=== PATIENT | female | born 1970 | race Caucasian/White ===

== ENCOUNTER 2017-09-08 12:08 | Outpatient (RCR) | payer BC, SELFPAY | END 2017-09-20 23:59 | LOC: NS 12:08 | PROVIDERS: Family Provider Internal Medicine; PCP Internal Medicine; Visit Provider Internal Medicine | DX: E66.9 Obesity, unspecified (principal); Z68.33 Body mass index [BMI] 33.0-33.9, adult; R73.09 Other abnormal glucose; Z71.3 Dietary counseling and surveillance | CPT/HCPCS: 97803 ==

== ENCOUNTER 2017-10-13 12:30 | Outpatient (RCR) | payer BC, SELFPAY ==
[2017-06-09 21:20] VITALS: BMI 34.4
[2017-06-09 23:33] VITALS: BP 130/57
== END 2017-10-18 23:59 ==
LOC: NS 12:30
PROVIDERS: Family Provider Internal Medicine; PCP Internal Medicine; Visit Provider Internal Medicine
DX: E66.9 Obesity, unspecified (principal); R73.09 Other abnormal glucose; Z68.33 Body mass index [BMI] 33.0-33.9, adult; Z71.3 Dietary counseling and surveillance
CPT/HCPCS: 97803

== ENCOUNTER 2017-11-10 11:36 | Outpatient (RCR) | payer BC, SELFPAY | END 2017-11-18 23:59 | LOC: NS 11:36 | PROVIDERS: Family Provider Internal Medicine; PCP Internal Medicine; Visit Provider Internal Medicine | DX: E66.9 Obesity, unspecified (principal); Z68.33 Body mass index [BMI] 33.0-33.9, adult | CPT/HCPCS: 97803 ==

== ENCOUNTER 2017-12-15 13:00 | Outpatient (RCR) | payer BC, SELFPAY | END 2017-12-18 23:59 | LOC: NS 13:00 | PROVIDERS: Family Provider Internal Medicine; PCP Internal Medicine; Visit Provider Internal Medicine | DX: E66.9 Obesity, unspecified (principal); Z68.33 Body mass index [BMI] 33.0-33.9, adult; R73.09 Other abnormal glucose; Z71.3 Dietary counseling and surveillance | CPT/HCPCS: 97803 ==

== ENCOUNTER → 2018-02-23 11:58 | Outpatient (CLI) | payer BC, SELFPAY ==
[2018-02-23 12:29] LABS: Absolute Lymphocyte Count 3.04 X10^3/ul (0.83-4.51); Absolute Neutrophil Count 6.7 X10^3/uL (2.0-7.7); Basophil# 0.01 X10^3/uL; Basophil% 0.1 % (0-1); Eosinophil# 0.02 X10^3/uL; Eosinophils% 0.2 % (0-5); Hematocrit 43.6 % (37-47); Hemoglobin 14.3 g/dl (12.0-15.0); Lymphocyte # 3.04 X10^3/ul (4.0); Lymphocyte % 27.4 % (19-41); Mean Corp Hgb Conc 32.8 g/gl (32-36); Mean Corpuscular Hgb 28.9 pg (27.0-32.0); Mean Corpuscular Volume 88.1 fL (81-99); Monocyte# 1.31 X10^3/uL; Monocyte% 11.8 % (0-10); Neutrophil # 6.71 X10^3/uL (2.7-7.7); Neutrophil % 60.3 % (47-70); Platelet Count 344 K/mm3 (150-450); RBC Distribution Width CV 13.7 % (11.6-14.6); RBC Distribution Width SD 43.7 fl (35.1-43.9); Red Blood Count 4.95 M/mm3 (4.2-5.4); White Blood Count 11.1 K/mm3 (4.4-11.0)
[2018-02-23 12:30] LABS: POSITIVE COUNT NO; POSITIVE DIFFERENTIAL NO; POSITIVE MORPHOLOGY NO
[2018-02-23 12:56] LABS: Hemoglobin A1c 6.5 % (4.2-6.3)
[2018-02-23 13:16] LABS: Anion Gap 8 (5-15); BUN 18 mg/dL (7-18); Calcium,Total 8.9 mg/dL (8.5-10.1); Chloride 105 mmol/L (98-107); Cholesterol 155 mg/dL (200); Creatinine, Serum 0.86 mg/dL (0.55-1.02); EST Glomerular Filtration Rate 75 mL/min (>60); Est Glom Filt Rate - Afr Amer 90 mL/min (>60); Glucose 103 mg/dL (74-106); High Density Lipoprotein 43 mg/dL; Potassium 4.4 mmol/L (3.5-5.1); Sodium Level 140 mmol/L (136-145); Triglycerides 144 mg/dL; Very Low Density Lipoprotein 29 mg/dL (5-40)
[2018-02-23 14:35] LABS: ALB/GLOB Ratio 1.1 RATIO (0.9-2.4); AST(SGOT) 11 U/L (15-37); Alanine Aminotransfer ALT/SGPT 30 U/L (13-56); Albumin, Serum 3.7 g/dL (3.2-5.0); Alkaline Phosphatase 66 U/L (45-117); Globulin 3.5 g/dL (2.2-4.2); Protein, Total 7.2 g/dL (6.4-8.2)
== END ==
PROVIDERS: Family Provider Internal Medicine; PCP Internal Medicine; Visit Provider Internal Medicine
DX: Z00.00 Encounter for general adult medical examination without abnormal findings (principal); E66.9 Obesity, unspecified
CPT/HCPCS: 36415; 80053; 80061; 83036; 85025

== ENCOUNTER 2018-03-09 11:30 | Outpatient (RCR) | payer BC, SELFPAY | END 2018-03-20 23:59 | LOC: NS 11:30 | PROVIDERS: Family Provider Internal Medicine; PCP Internal Medicine; Visit Provider Internal Medicine | DX: E66.9 Obesity, unspecified (principal); Z68.33 Body mass index [BMI] 33.0-33.9, adult; R73.09 Other abnormal glucose; Z71.3 Dietary counseling and surveillance | CPT/HCPCS: 97803 ==

== ENCOUNTER 2018-03-14 14:32 | Emergency (ER) | payer BC, SELFPAY ==
[2018-03-14 14:32] VITALS: BP 156/80; PULSE 97; RESP 20; TEMP 36.6; O2SAT 95; BMI 31.1
--- NOTE | 2018-03-14 14:43 | EKG12_ITS ---
Test Reason : Blood Pressure : / mmHG Vent. Rate : 088 BPM Atrial Rate : 088 BPM P-R Int : 150 ms QRS Dur : 090 ms QT Int : 374 ms P-R-T Axes : 052 021 046 degrees QTc Int : 452 ms Normal sinus rhythm Normal ECG Confirmed by KATIE OCHOA, SUZETTE ([id number]), brands editor ANDREW WHALEN ([id number]) on 03/16/2018 1:37:30 PM Referred By: Dustin Dempsey Confirmed By:SUZETTE WILSON MD
--- NOTE | 2018-03-14 15:25 | RAD_ITS ---
STUDY: X-RAY CHEST REASON FOR EXAM: Female, 47 years old. Chest pain TECHNIQUE: Single AP portable view of the chest. COMPARISON: 06/09/2017 FINDINGS: The lungs are clear and expanded. There is no demonstrated pleural abnormality. Normal size heart. Normal mediastinum and suresh. Normal visualized pulmonary arteries. Normal visualized aortic arch and descending thoracic aorta. Normal visualized thoracic spine. Normal visualized ribs, clavicles, and shoulders. There is no demonstrated abnormality of the visualized soft tissue structures of the upper abdomen. RAD/Chest 1 View (Portable) IMPRESSION: Normal x-ray examination of the chest. Electronically Signed: Shiraz Garrett MD at 15:41 EDT , Service support ,
[2018-03-14 15:29] LABS: Absolute Lymphocyte Count 1.93 X10^3/ul (0.83-4.51); Absolute Neutrophil Count 3.3 X10^3/uL (2.0-7.7); Basophil# 0.03 X10^3/uL; Basophil% 0.5 % (0-1); Eosinophil# 0.03 X10^3/uL; Eosinophils% 0.5 % (0-5); Hematocrit 43.3 % (37-47); Hemoglobin 14.6 g/dl (12.0-15.0); Lymphocyte # 1.93 X10^3/ul (4.0); Mean Corp Hgb Conc 33.7 g/gl (32-36); Mean Corpuscular Hgb 29.4 pg (27.0-32.0); Mean Corpuscular Volume 87.3 fL (81-99); Mean Platelet Vol. 10.3 fl (6.2-12.0); Monocyte# 0.74 X10^3/uL; Monocyte% 12.3 % (0-10); Neutrophil # 3.29 X10^3/uL (2.7-7.7); Neutrophil % 54.4 % (47-70); Platelet Count 298 K/mm3 (150-450); RBC Distribution Width CV 13.6 % (11.6-14.6); RBC Distribution Width SD 42.8 fl (35.1-43.9); Red Blood Count 4.96 M/mm3 (4.2-5.4)
[2018-03-14 15:41] LABS: POSITIVE COUNT NO; POSITIVE DIFFERENTIAL NO; POSITIVE MORPHOLOGY NO
[2018-03-14 15:42] LABS: Anion Gap 7 (5-15); BUN 14 mg/dL (7-18); BUN/Creat Ratio 15.9 RATIO (10-20); Calcium,Total 9.1 mg/dL (8.5-10.1); Chloride 108 mmol/L (98-107); Creatinine, Serum 0.88 mg/dL (0.55-1.02); EST Glomerular Filtration Rate 72 mL/min (>60); Est Glom Filt Rate - Afr Amer 88 mL/min (>60); Estimated Creatinine Clearance 69.59 ml/min; Glucose 159 mg/dL (74-106); Potassium 3.7 mmol/L (3.5-5.1); Sodium Level 142 mmol/L (136-145)
[2018-03-14 15:45] VITALS: BP 121/73; PULSE 77; RESP 12; O2SAT 98
[2018-03-14 16:12] LABS: Prothrombin Time (Protime)PT. 13.5 SECONDS (11.7-14.9)
--- NOTE | 2018-03-14 16:39 | CT_ITS ---
STUDY: CT BRAIN WITHOUT CONTRAST REASON FOR EXAM: Female, 47 years old. Weakness. Left-sided numbness. RADIATION DOSAGE (If Supplied By Facility): CTDIvol = ( 60.81 ) mGy, DLP = ( 1112.69 ) mGycm TECHNIQUE: Transaxial CT imaging of the brain was performed without administration of intravenous contrast material. Individualized dose optimization techniques were used for this CT. COMPARISON: March 21, 2017 FINDINGS: Normal soft tissue structures. Normal calvarium. Normal size ventricles and extra-axial spaces for the patient's age. Normal white matter tracts of the cerebral hemispheres. Normal basal ganglia and thalami. Normal brainstem. Normal cerebellum. There is no intracranial hemorrhage. There are no findings of an acute ischemic infarction. Normal visualized paranasal sinuses. CT/Brain/Head without Contrast IMPRESSION: Normal unenhanced CT scan of the brain. Electronically Signed: Stephen Feliz MD at 17:14 EDT , Service support ,
--- NOTE | 2018-03-14 17:41 | ED.VISSUMM ---
- ER Visit Summary Date of Service: 03/14/18 Chief Complaint: Chest pain History of Present Illness: The patient is a 47 F who has had chest pain for 4 days. She states that sharp in the left side of her chest. It is worse with exertion and nothing makes it better. She has shortness of breath and laying down on her left side. She states that she also felt numbness on her left side as well. She has had a cough with phlegm for approximately 1 year. She is also fixated about her hemoglobin A1c being elevated by her PCP a couple of days ago. She denies any slurred speech, weakness of her arms or legs. No facial droop. Physical Examination: Vital signs reviewed. HEENT exam unremarkable. Heart is regular rate and rhythm without murmurs. Lungs are clear to auscultation. Abdomen is soft and nontender. Extremities reveal no edema. Skin exam normal. Neurologic exam normal. NIH equals 0 Test Results: EKG is sinus rhythm with a rate of 85. No ST changes. Chest x-ray and CAT scan the head are both normal. Labs are normal except for chloride of 108. Emergency Department Course and Treatment: Patient has a JILLIAN score of 0. I do not feel that her chest pain needs to be worked up as an inpatient. It is likely musculoskeletal. Her paresthesias are now gone. I had a very low suspicion for TIA. No signs of a stroke. She will need to follow-up with her primary care physician for this. I will give her naproxen to help with her pain control. Treatment Plan: [] Disposition: Discharge Impression: Chest pain, left arm paresthesias This note was generated with [employer] dictation software. It may contain incorrect words, spelling, and punctuation that were not noted in review of the chart prior to signing ED Disposition - Plan for ED Patient: Chief Complaint: Chest Pain Referrals: Oli Velasco MD [Primary Care Provider] -
--- NOTE | 2018-03-14 17:43 | ED.DEP ---
ED Disposition - Plan for ED Patient: Disposition: Home or Assisted Living Chief Complaint: Chest Pain Instructions: ED Chest Pain NonCardiac Prescriptions: Naproxen [Naprosyn] 500 mg PO BID PRN #20 tab Referrals: Oli Velasco MD [Primary Care Provider] -
[2018-03-14 17:52] VITALS: BP 140/79; PULSE 68; RESP 12; O2SAT 100
--- NOTE | 2018-03-14 17:53 | ED.RN ---
REVIEWED D/C INSTRUCTIONS, FOLLOW UP CARE, PRESCRIPTION, AND S/S THAT WOULD WARRANT A RETURN TO THE ED WITH PT. PT VERBALIZED AN UNDERSTANDING AND DENIES FURTHER QUESTIONS FOR THIS RN. PT SKIN P/W/D, RESP EVEN AND UNLABORED, PT A&O X 3, NO DISTRESS NOTED. PT AMBULATED OUT OF ED, GAIT STEADY.
== END 2018-03-14 17:54 | disposition home or self-care (01) ==
PROVIDERS: Emergency Provider Emergency Medicine; Family Provider Internal Medicine; PCP Internal Medicine
DX: R07.9 Chest pain, unspecified (principal); R20.2 Paresthesia of skin; R06.00 Dyspnea, unspecified; Z79.899 Other long term (current) drug therapy
CPT/HCPCS: 70450; 71045; 80048; 84484; 85025; 85610; 93005; 99284

== ENCOUNTER 2018-04-20 08:15 | Outpatient (RCR) | payer BC, SELFPAY | END 2018-04-20 23:59 | LOC: NS 08:15 | PROVIDERS: Family Provider Internal Medicine; PCP Internal Medicine; Visit Provider Internal Medicine | DX: E66.9 Obesity, unspecified (principal); Z68.33 Body mass index [BMI] 33.0-33.9, adult; R73.09 Other abnormal glucose; Z71.3 Dietary counseling and surveillance | CPT/HCPCS: 97803 ==

== ENCOUNTER 2018-05-04 08:35 | Outpatient (RCR) | payer BC, SELFPAY | END 2018-05-20 23:59 | LOC: NS 08:35 | PROVIDERS: Family Provider Internal Medicine; PCP Internal Medicine; Visit Provider Internal Medicine | DX: E11.9 Type 2 diabetes mellitus without complications (principal); E66.9 Obesity, unspecified; Z71.3 Dietary counseling and surveillance | CPT/HCPCS: 97802 ==

== ENCOUNTER 2018-06-08 12:15 | Outpatient (RCR) | payer BC, SELFPAY | END 2018-06-20 23:59 | LOC: NS 12:15 | PROVIDERS: Family Provider Internal Medicine; PCP Internal Medicine; Referring Provider Internal Medicine; Visit Provider Internal Medicine | DX: E11.9 Type 2 diabetes mellitus without complications (principal); E66.9 Obesity, unspecified; Z71.3 Dietary counseling and surveillance | CPT/HCPCS: 97803 ==

== ENCOUNTER 2018-06-22 11:15 | Outpatient (RCR) | payer BC, SELFPAY | END 2018-07-20 23:59 | LOC: NS 11:15 | PROVIDERS: Family Provider Internal Medicine; PCP Internal Medicine; Referring Provider Internal Medicine; Visit Provider Internal Medicine | DX: E11.9 Type 2 diabetes mellitus without complications (principal); E66.9 Obesity, unspecified; Z71.3 Dietary counseling and surveillance | CPT/HCPCS: 97803 ==

== ENCOUNTER → 2018-06-29 14:36 | Outpatient (CLI) | payer BC, SELFPAY ==
[2018-07-05 08:21] LABS: HPV Reflexed? NOT INDICATED
== END ==
PROVIDERS: Visit Provider Obstetrics & Gynecology
DX: Z12.4 Encounter for screening for malignant neoplasm of cervix (principal)
CPT/HCPCS: 87624; 88175; G0145

== ENCOUNTER → 2018-07-11 16:07 | Outpatient (CLI) | payer BC, SELFPAY ==
[2018-07-11 13:07] VITALS: BMI 31.6
[2018-07-11 17:10] LABS: Bacteria 0 SEEN /hpf (None Seen); Mucous, Urine 0 SEEN /hpf (<or=2+); Red Blood Cells-Urine 0 SEEN /hpf (0-5); White Blood Cells 0 SEEN /hpf (0-5)
[2018-07-11 17:17] LABS: Color, Urine Yellow (Yellow); Glucose, Dipstick Normal (Normal); Ketone-Dipstick Negative (Negative); Leukocyte Esterase-Dipstick Negative /ul (Negative); Nitrite-Dipstick Negative (Negative); Occult Blood-Urine 10 /ul (Negative); Protein-Dipstick Negative (Negative); Specific Gravity, Urine 1.015 (1.002-1.030); Urine Bilirubin Dipstick Negative (Negative); Urine Clarity Clear (Clear); Urine Urobilinogen Normal (Normal)
[2018-07-11 17:24] LABS: Squamous Epithelial Cells - UA 0-5 SEEN /hpf (5-10)
== END ==
PROVIDERS: Referring Provider Internal Medicine; Visit Provider Internal Medicine
DX: R10.9 Unspecified abdominal pain (principal)
CPT/HCPCS: 81001

== ENCOUNTER → 2018-08-13 13:01 | Outpatient (CLI) | payer BC, SELFPAY ==
[2018-07-11 13:07] VITALS: BMI 31.6
--- NOTE | 2018-08-13 13:04 | BI_ITS ---
MAMMOGRAPHY - BILATERAL SCREENING 3-D SUSANNAH SYNTHESIS REASON FOR EXAM: Female, 48 years old. Bilateral Screening 3-D tomosynthesis PERTINENT HISTORY: No significant family history. TECHNIQUE: 2-D mammograms and 3-D Susannah synthesis of the breast (s) were performed. CAD was performed. COMPARISON: Was made to the study of June 02, 2017 FINDINGS: The breast composition is of scattered fibroglandular tissue No dense spiculated masses or suspicious microcalcifications are identified. No architectural distortion is identified. There is no skin thickening or retraction. There has been no significant change since the prior study of June 02, 2017. BI/SCREENING MAMM (CAD), BILAT IMPRESSION: No mammographic signs of malignancy. Routine yearly mammograms recommended. ASSESSMENT CATEGORY: BIRADS Category 1: Negative. A letter regarding these results will be sent to the patient by the facility within 30 days. FOLLOW UP RECOMMENDATION: Yearly follow up mammogram recommended. (A) Approximately 10% of breast cancers are not detected by mammography. A normal mammogram should not delay biopsy of a clinically suspicious abnormality. Electronically Signed: Jack Oneill, at 11:18 EST Tel , Service support ,
== END ==
PROVIDERS: Family Provider Internal Medicine; PCP Internal Medicine; Referring Provider Obstetrics & Gynecology; Visit Provider Obstetrics & Gynecology
DX: Z12.31 Encounter for screening mammogram for malignant neoplasm of breast (principal)
CPT/HCPCS: 77063; 77067

== ENCOUNTER 2018-09-07 10:30 | Outpatient (RCR) | payer BC, SELFPAY ==
[2018-07-11 13:07] VITALS: BMI 31.6
== END 2018-09-20 23:59 ==
LOC: NS 10:30
PROVIDERS: Family Provider Internal Medicine; PCP Internal Medicine; Referring Provider Internal Medicine; Visit Provider Internal Medicine
DX: E11.9 Type 2 diabetes mellitus without complications (principal); E66.9 Obesity, unspecified; Z71.3 Dietary counseling and surveillance
CPT/HCPCS: 97803

== ENCOUNTER 2018-09-28 10:29 | Outpatient (RCR) | payer BC, SELFPAY ==
[2018-07-11 13:07] VITALS: BMI 31.6
== END 2018-09-28 23:59 | disposition home or self-care (01) ==
LOC: NS 10:29
PROVIDERS: Family Provider Internal Medicine; PCP Internal Medicine; Referring Provider Internal Medicine; Visit Provider Internal Medicine
DX: E11.9 Type 2 diabetes mellitus without complications (principal); E66.9 Obesity, unspecified; Z71.3 Dietary counseling and surveillance
CPT/HCPCS: 97803

== ENCOUNTER → 2018-10-17 07:27 | Outpatient (CLI) | payer BC, SELFPAY ==
[2018-07-11 13:07] VITALS: BMI 31.6
[2018-10-17 08:33] LABS: Hemoglobin A1c 6.2 % (4.2-6.3)
== END ==
PROVIDERS: Family Provider Internal Medicine; PCP Internal Medicine; Referring Provider Internal Medicine; Visit Provider Internal Medicine
DX: R73.03 Prediabetes (principal); R10.9 Unspecified abdominal pain
CPT/HCPCS: 36415; 83036

== ENCOUNTER 2019-05-13 16:57 | Emergency (ER) | payer BC, SELFPAY ==
[2019-05-03 17:47] VITALS: BMI 31.6
[2019-05-13 16:58] VITALS: BP 154/85; PULSE 75; RESP 17; TEMP 36.2; O2SAT 97; BMI 34.5
--- NOTE | 2019-05-13 17:12 | EKG12_ITS ---
Test Reason : CP/SOB Blood Pressure : / mmHG Vent. Rate : 072 BPM Atrial Rate : 072 BPM P-R Int : 150 ms QRS Dur : 090 ms QT Int : 404 ms P-R-T Axes : 028 013 038 degrees QTc Int : 442 ms Normal sinus rhythm Normal ECG Confirmed by KATIE OCHOA, SUZETTE ([id number]), avid editor AUTUMN RAMOS ([id number]) on 05/15/2019 10:54:01 AM Referred By: ELVER/LINDA Confirmed By:SUZETTE WILSON MD
--- NOTE | 2019-05-13 17:23 | RAD_ITS ---
STUDY: X-RAY CHEST REASON FOR EXAM: Female, 49 years old. Chest pain TECHNIQUE: Frontal view of the chest COMPARISON: X-ray chest March 14, 2018 FINDINGS: The lungs are clear. There are no pleural effusions. There is no pneumothorax. The heart is normal in size. The visualized osseous structures are within normal limits. RAD/Chest 1 View (Portable) IMPRESSION: No acute thoracic pathology. Electronically Signed: Mauro Constantino, at 17:37 EDT Tel , Service support ,
[2019-05-13 18:10] LABS: Absolute Lymphocyte Count 3.41 X10^3/uL (0.83-4.51); Absolute Neutrophil Count 6.8 X10^3/uL (2.0-7.7); Basophil# 0.05 X10^3/uL; Basophil% 0.4 % (0-1); Eosinophil# 0.15 X10^3/uL; Eosinophils% 1.3 % (0-5); Hematocrit 43.4 % (37-47); Hemoglobin 14.4 g/dL (12.0-15.0); Lymphocyte # 3.41 X10^3/ul (4.0); Mean Corp Hgb Conc 33.2 g/dL (32-36); Mean Corpuscular Hgb 29.4 pg (27.0-32.0); Mean Corpuscular Volume 88.8 fL (81-99); Mean Platelet Vol. 9.9 fl (6.2-12.0); Monocyte# 1.24 X10^3/uL; Monocyte% 10.6 % (0-10); NRBC Flagged by Analyzer 0 % (0-5); Neutrophil # 6.77 X10^3/uL (2.7-7.7); Neutrophil % 57.6 % (47-70); Platelet Count 282 K/mm3 (150-450); RBC Distribution Width SD 42.3 fl (35.1-43.9); Red Blood Count 4.89 M/mm3 (4.2-5.4); White Blood Count 11.8 K/mm3 (4.4-11.0)
[2019-05-13 18:23] LABS: Anion Gap 4 (5-15); BUN 13 mg/dL (7-18); BUN/Creat Ratio 16.2 RATIO (10-20); Calcium,Total 9.3 mg/dL (8.5-10.1); Chloride 105 mmol/L (98-107); EST Glomerular Filtration Rate 80 mL/min (>60); Est Glom Filt Rate - Afr Amer 97 mL/min (>60); Estimated Creatinine Clearance 74.86 ml/min; Glucose 130 mg/dL (74-106); Potassium 3.7 mmol/L (3.5-5.1); Sodium Level 138 mmol/L (136-145)
[2019-05-13 18:43] VITALS: BP 138/71; PULSE 70; RESP 14; O2SAT 96
[2019-05-13 18:51] LABS: D-Dimer Quantitative (DVT/PE) < 0.27 FEU/ug/m (0.27-0.49)
[2019-05-13 19:06] VITALS: BP 152/86; PULSE 71; RESP 10; O2SAT 99
--- NOTE | 2019-05-13 19:07 | ED.DCSUM_ITS ---
- ER Visit Summary Date of Service: 05/13/19 Chief Complaint: Chest pain History of Present Illness: The patient is a 49 F who states that yesterday evening she began to feel chest pressure on the left side of her chest going into the back. Was very intermittent until today not feels more constant. Is worse with taking a deep breath. She states she has had felt nauseous all day. States is very hard for describe exactly how it feels. She states that she was treated for bronchitis about 2 weeks ago. She was given antibiotic steroids and inhaler. Physical Examination: Afebrile vital signs are stable Gen: Well-nourished well-developed Head: Normocephalic atraumatic Eyes: Perrl EOMI ENT: TMs clear no rhinorrhea moist mucous membranes Neck: Supple no lymphadenopathy no JVD nontender CVS: Regular rate rhythm no murmurs normal S1-S2 Respiratory: No distress clear to auscultation bilaterally chest nontender Abdomen: Soft nontender nondistended normal bowel sounds no masses Back: Nontender Extremity: Nontender no edema Skin: Normal color no rash Neuro: alert orientated ?3 CN II-XII intact normal strength sensation reflexes gait cerebellar Psych: Normal affect normal mood Test Results: EKG shows sinus rhythm rate 72. CBC the white count 11.8. Chem istries showed a glucose of 130. Troponin negative d-dimer negative chest x-ray showed no acute findings. Emergency Department Course and Treatment: Given the patient just had an infection has this pain the above work-up being negative this could probably be pleurisy. Will place her on anti-inflammatories and have her follow-up. Impression: 1. Chest pain 2. Pleurisy This note was generated with [employer] dictation software. It may contain incorrect words, spelling, and punctuation that were not noted in review of the chart pr ior to signing ED Disposition - Plan for ED Patient: Disposition: Home or Assisted Living Instructions: Pleurisy Prescriptions: Naproxen [Naprosyn] 500 mg PO BID #14 tab Prescription Printed Referrals: Oli Velasco MD [Primary Care Provider] - 1 Week if not improving
[2019-05-13 19:14] VITALS: BP 152/86; PULSE 65; RESP 18; O2SAT 97
== END 2019-05-13 19:14 | disposition home or self-care (01) ==
PROVIDERS: Emergency Provider Emergency Medicine; Family Provider Internal Medicine; PCP Internal Medicine
DX: R09.1 Pleurisy (principal); R07.89 Other chest pain; R11.0 Nausea; M54.9 Dorsalgia, unspecified; Z87.09 Personal history of other diseases of the respiratory system
CPT/HCPCS: 71045; 80048; 84484; 85025; 85379; 93005; 99284; A4216

== ENCOUNTER → 2019-11-14 16:30 | Outpatient (CLI) | payer BC, SELFPAY ==
--- NOTE | 2019-11-14 | BI_ITS ---
MAMMOGRAPHY - BILATERAL SCREENING REASON FOR EXAM: Female, 49 years old. Routine annual screening examination. PERTINENT HISTORY: Non-contributory. TECHNIQUE: Digital bilateral breast susannah (3D mammographic acquisition) in the CC and MLO projections. 2-D mediolateral oblique (MLO) and craniocaudad (CC) views of both breasts were obtained. CAD: Full Field Digital Mammography with Computer Added Detection was performed. COMPARISON: Comparison is made with prior examination dated August 13, 2018 and June 02, 2017. FINDINGS: Breast Composition: There are scattered areas of fibroglandular density. There are no dominant masses or suspicious calcifications. Stable benign-appearing bilateral axillary lymph nodes. No other significant abnormalities are identified. There has been no significant change since the prior study. BI/SCREEN MAMM (CAD) W/SUSANNAH BILAT IMPRESSION: Stable bilateral screening mammogram. Yearly follow-up mammogram recommended. (A) ASSESSMENT CATEGORY: BIRADS Category 2: Benign. A letter regarding these results will be sent to the patient by the facility within 30 days. Approximately 10% of breast cancers are not detected by mammography. A normal mammogram should not delay biopsy of a clinically suspicious abnormality. [id number] Electronically Signed: Phu Suarez, at 8:09 EDT , Service support ,
== END ==
PROVIDERS: PCP Internal Medicine; Referring Provider Obstetrics & Gynecology; Visit Provider Obstetrics & Gynecology
DX: Z12.31 Encounter for screening mammogram for malignant neoplasm of breast (principal)
CPT/HCPCS: 77063; 77067

== ENCOUNTER → 2019-11-21 17:22 | Outpatient (CLI) | payer BC, SELFPAY ==
[2019-11-21 15:56] VITALS: BMI 34.1
[2019-11-21 18:01] LABS: Hemoglobin A1c 6.8 % (4.2-6.3)
[2019-11-21 18:12] LABS: Absolute Lymphocyte Count 3.38 X10^3/uL (0.83-4.51); Absolute Neutrophil Count 4.8 X10^3/uL (2.0-7.7); Basophil# 0.06 X10^3/uL; Basophil% 0.7 % (0-1); Eosinophil# 0.14 X10^3/uL; Eosinophils% 1.5 % (0-5); Hematocrit 46.1 % (37-47); Hemoglobin 14.9 g/dL (12.0-15.0); Lymphocyte # 3.38 X10^3/ul (4.0); Lymphocyte % 36.7 % (19-41); Mean Corp Hgb Conc 32.3 g/dL (32-36); Mean Corpuscular Hgb 28.9 pg (27.0-32.0); Mean Corpuscular Volume 89.5 fL (81-99); Mean Platelet Vol. 10.5 fl (6.2-12.0); Monocyte# 0.85 X10^3/uL; Monocyte% 9.2 % (0-10); NRBC Flagged by Analyzer 0 % (0-5); Neutrophil # 4.75 X10^3/uL (2.7-7.7); Neutrophil % 51.6 % (47-70); Platelet Count 345 K/mm3 (150-450); RBC Distribution Width CV 13.1 % (11.6-14.6); Red Blood Count 5.15 M/mm3 (4.2-5.4); White Blood Count 9.2 K/mm3 (4.4-11.0)
[2019-11-21 18:18] LABS: ALB/GLOB Ratio 1.1 RATIO (0.9-2.4); AST(SGOT) 21 U/L (15-37); Alanine Aminotransfer ALT/SGPT 46 U/L (13-56); Albumin, Serum 4.2 g/dL (3.2-5.0); Alkaline Phosphatase 108 U/L (45-117); Anion Gap 8 (5-15); BUN 16 mg/dL (7-18); BUN/Creat Ratio 17.8 RATIO (10-20); Calcium,Total 9.5 mg/dL (8.5-10.1); Chloride 105 mmol/L (98-107); Cholesterol 217 mg/dL (200); EST Glomerular Filtration Rate 70 mL/min (>60); Est Glom Filt Rate - Afr Amer 85 mL/min (>60); Globulin 3.8 g/dL (2.2-4.2); Glucose 101 mg/dL (74-106); High Density Lipoprotein 36 mg/dL; Potassium 3.7 mmol/L (3.5-5.1); Sodium Level 140 mmol/L (136-145); T4 Free Direct 0.89 ng/dL (0.76-1.46); Thyroid Stim Hormone (TSH) 1.41 uIU/mL (0.358-3.74); Triglycerides 445 mg/dL
== END ==
PROVIDERS: PCP Internal Medicine; Visit Provider Internal Medicine
DX: E11.9 Type 2 diabetes mellitus without complications (principal); Z13.29 Encounter for screening for other suspected endocrine disorder
CPT/HCPCS: 80053; 80061; 83036; 84439; 84443; 85025

== ENCOUNTER → 2019-12-06 13:06 | Outpatient (CLI) | payer BC, SELFPAY ==
[2019-11-21 15:56] VITALS: BMI 34.1
--- NOTE | 2019-12-06 13:08 | EKG12_ITS ---
Test Reason : CP Blood Pressure : / mmHG Vent. Rate : 064 BPM Atrial Rate : 064 BPM P-R Int : 172 ms QRS Dur : 088 ms QT Int : 420 ms P-R-T Axes : 042 009 244 degrees QTc Int : 433 ms Normal sinus rhythm ST & T wave abnormality, consider inferior ischemia Abnormal ECG Confirmed by SHARON OCHOA, TITUS ([id number]), makeup editor ANDREW WHALEN ([id number]) on 12/09/2019 11:49:51 AM Referred By: Oli Velasco Confirmed By:TITUS HERRERA MD
== END ==
PROVIDERS: PCP Internal Medicine; Referring Provider Internal Medicine; Visit Provider Internal Medicine
DX: R07.9 Chest pain, unspecified (principal)
CPT/HCPCS: 93005

== ENCOUNTER → 2020-01-15 07:24 | Outpatient (CLI) | payer BC, SELFPAY ==
[2019-12-25 15:47] VITALS: BMI 34.1
--- NOTE | 2020-01-15 13:36 | STRESSREP ---
Stress Test Report Pharmacologic myocardial perfusion stress test. 49-year-old lady with a history of chest pain. Stress protocol: Resting EKG demonstrates sinus bradycardia with a rate of 58 bpm normal intervals are noted resting blood pressures 128/80 mmHg. 0.4 mg of regadenoson was infused per usual protocol followed by rapid intravenous saline flush injection continuous EKG monitoring was performed. The maximum heart rate attained was 103 bpm which was 60% of max impacted heart rate the maximum workload was 1 metabolic equivalent. No chest pain was noted. The resting blood pressure was 128/80 final blood pressure was 122/74. Myocardial perfusion protocol. 15.0 mCi of technetium 99m sestamibi was injected at rest. 0.4 mg of regadenoson was infused per usual protocol peak infusion 45.0 mCi of technetium 99m sestamibi was injected stress images were obtained stress and rest images were reconstructed in comparing the short axis vertical long horizontal long axis. Gated images were also obtained per Perfusion SPECT analysis: Review of the images demonstrate normal uptake of tracer noted in all areas of the myocardium. The resting images similar demonstrate normal uptake of tracer noted in all areas of the myocardium. No reversibility is noted to suggest ischemia no previous infarct is noted. Gated SPECT analysis: The gated ejection fraction is 79%. Conclusion: Normal pharmacologic myocardial perfusion stress test. Preserved ejection fraction.
--- OUTSIDE RECORDS SUMMARY | 2020-06-02 17:35 | XMS RPT_ITS | CCD ---
:1970 External Reference #:[id number] Author Organization [facility] Care Team Providers Name Role Phone Dionte Stanley Unavailable Magalie Dickey Unavailable Unavailable Desiree Bledsoe Unavailable Unavailable Krista OCHOA, B Unavailable Crissy Coughlin Unavailable Medications Medication Name Sig Date Prescriber Location cyclobenzaprine CYCLOBENZAPRINE HCL 10 06-29-2017 Oli Lynch [place] TABS 1 tab every Krista OCHOA Internal Medicine night prn (39140) CYCLOBENZAPRINE HCL [id number] Oli Velasco MD Naproxen NAPROXEN 250 MG TABS 1 11-20-2015 [facility] tab twice daily Sports Medic ine and NAPROXEN Orthopae dics [id number] Naldo Rapp ([id number] ) Jaden omeprazole OMEPRAZOLE 20 MG CPDR 06-29-2017 Oli marrufo One tablet by mouth Krista OCHOA Internal Medicine daily (39226) OMEPRAZOLE [id number] Oli Velasco MD Problems Active Problems Category Problem Name Status Date Location Other nutritional; Obesity Active 06-29-2017 - [facility] endocrine; and metabolic Med icine (02193) disorders Unclassified Hypersomnia Active 06-29-2017 - [facility] (39290 ) Past or Other Problems Category Problem Name Status Date Location Diabetes mellitus Abnormal glucose Completed 06-29-2017 - Juan Alberto marrufo Internal without complication level Medicin e (62711) Joint disorders and Other tear of Completed [facility]-2015 [facility] dis[facility]; medial meniscus, Sports Med icine and trauma-related current injury, Orthopaedi cs (05888) left knee, initial encounter Other aftercare Other tear of Completed 12-30-2015 - [facility] medial meniscus, Sports Medi cine and current injury, Orthopaedics (60981) left knee, subsequent encounter Other connective Spasm Completed 06-29-2017 - [facility] tissue disease Medicine (475 91) Other non-traumatic Knee pain Completed 11-20-2015 - [facility] joint disorders Sports Medic ine and Orthopaedics (4 7373) Superficial injury; Contusion of left Completed 02-24-2017 - [facility] contusion knee, initial Sports Medicin e and encounter Orthopaedics (4 4485) Unclassified Encounter for Completed 06-29-2017 - [facility] ternal screening for other Medicine (03394) disorder Results Result Name Value Range Unit Interpretation Flag Date Location progress on 2019-11 PROGRESS HNO ID: [id number] Normal 12-05-2019 [facility] Author: Jose Antonio Silveira ([id number]) Service: ? Author Type: Physician Type: Progress Notes Filed: 12/05/2019 5:28 PM Note Text: Patient presents with: Sore Throat: x 1 day HPI: Feeling scratchy throat on the left side today. She noticed what she thought was a tonsil stone on the left side. She picked at i t with a tooth pick which caused irritation and some bleeding. Positive symptoms: Sore throat, Negative symptoms: Cough, Shortness of breath, Sinus pressur e, Nasal Congestion, Rhinorrhea, Fever, Chills, Body Aches, Malaise, Headache, Nausea, Vomiting, Diarrhea, OTC: PAST MEDICAL HISTORY Diagnosis Date - Diabetes mellitus, type 2 (HCC) - Other forms of migraine - Snoring - Tobacco use disorder MEDICATIONS: Current Outpatient Medications Medication Sig - metFORMIN (GLUCOPHAGE) 500 mg tablet Take 1 tablet by mout h twice daily. - ACCU-CHEK JEISON PLUS METER CHECK BLOOD GLUCOSE DAILY FOR T YPE 2 DM - ACCU-CHEK JEISON PLUS TEST STRP test strip CHECK BLOOD GLUC OSE DAILY FOR TYPE 2 DM - ACCU-CHEK SOFTCLIX LANCETS lancets CHECK BLOOD GLUCOSE ALXEA LY FOR TYPE 2 DM No current facility-administered medications for this visit. ALLERGIES: ALLERGIES No Known Allergies VITALS: BP 128/78 Pulse 70 Temp 36.7 ?C (98.1 ?F) (Left Tympanic ) Resp 16 Wt 93 kg (205 lb) LMP 03/06/2016 SpO2 99% BMI 35.19 kg/m? PHYSICAL EXAM: GEN: Pleasant, in no acute distress. HEENT: PERRL, EOMI, conjunctiva clear Nose: Patent. Throat: moist mucous membranes, no erythema, no exudate, whi te debris a crypt of the left tonsil Neck: supple, no thyromegaly, no lymphadenopathy ASSESSMENT/PLAN: 1. Sore throat - ICD9: 462, ICD10: J02.9 (primary diagnosis) - suspect tonsillolith - RAPID STREP TEST B/O - negative 2. Tonsillolith - ICD9: 474.8, ICD10: J35.8 Avoid picking or brushing to dislodge. She may try gargling. See ENT if persistently bothersome. Jose Antonio Russo MD cnov on 2019-12-05 CNOV Office Visit (UCWSTR) Normal 12-05-[address] [place] [address] [facility] NANCY AHUMADA ([id number]) 1970 [facility] Time Provider Department ([id number]) 12/05/19 5:00 [address] [facility] During your visit today, we recorded the following informati on about you: Temperature Pulse Respiration Blood pressure 98.1 degrees 70/minute 16/minute 128/78 Weight 93 kg Jose Antonio Russo MD 12/05/2019 5:28 PM Signed Patient presents with: Sore Throat: x 1 day HPI: Feeling scratchy throat on the left side today. She no ticed what she thought was a tonsil stone on the left side. She picked at it with a tooth pick which caused irritation and some bleeding. Positive symptoms: Sore throat, Negative symptoms: Cough, Shortness of breath, Sinus pressur e, Nasal Congestion, Rhinorrhea, Fever, Chills, Body Ache s, Malaise, Headache, Nausea, Vomiting, Diarrhea, OTC: PAST MEDICAL HISTORY Diagnosis Date - Diabetes mellitus, type 2 (HCC) - Other forms of migraine - Snoring - Tobacco use disorder MEDICATIONS: Current Outpatient Medications Medication Sig - metFORMIN (GLUCOPHAGE) 500 mg tablet Take 1 tablet by mout h twice daily. - ACCU-CHEK JEISON PLUS METER CHECK BLOOD GLUCOSE DAILY FOR T YPE 2 DM - ACCU-CHEK JEISON PLUS TEST STRP test st rip CHECK BLOOD GLUCOSE DAILY FOR TYPE 2 DM - ACCU-CHEK SOFTCLIX LANCETS lancets CHECK BLOOD GLUCO SE DAILY FOR TYPE 2 DM No current facility-administered medications for this visit. ALLERGIES: ALLERGIES No Known Allergies VITALS: BP 128/78 Pulse 70 Temp 36.7 ?C (98.1 ?F) (Left Tympanic ) Resp 16 Wt 93 kg (205 lb) LMP 03/06/2016 SpO2 99% BMI 35.19 kg /m? PHYSICAL EXAM: GEN: Pleasant, in no acute distress. HEENT: PERRL, EOMI, conjunctiva clear Nose: Patent. Throat: moist mucous membranes, no erythema, no exudate, whi te debris a crypt of the left tonsil Neck: supple, no thyromegaly, no lymphadenopathy ASSESSMENT/PLAN: 1. Sore throat - ICD9: 462, ICD10: J02.9 (primary diagnosis) - suspect tonsillolith - RAPID STREP TEST B/O - negative 2. Tonsillolith - ICD9: 474.8, ICD10: J35.8 Avoid picking or brushing to dislodge. She may try gargling. See ENT if persistently bothersome. Jose Antonio Russo MD Referring Provider: SELF [[id number]] Allergies As of Date: 12/05/2019 (No Known Allergies) Date Reviewed: 12/05/2019 Reviewed by: Berkley Maria Ma - Fully Assessed Reason for Visit: Sore Throat [200] Cmt: x 1 day Primary Visit Diagnosis:Sore throat [J02.9] Other Visit Diagnosis:Tonsillolith [J35.8] Order(s):RAPID STREP TEST B/O [[id number]] Order #: [id number] Prescriptions as of 12/05/2019 Sig: METFORMIN 500 MG TABLET Take 1 tablet by mouth twice * ACCU-CHEK JEISON PLUS METER CHECK BLOOD GLUCOSE DAILY FOR* ACCU-CHEK JEISON PLUS TEST STR* CHECK BLOOD GLUCOSE DAILY FOR * ACCU-CHEK SOFTCLIX LANCETS CHECK BLOOD GLUCOSE DAILY FOR* Problem List As Of Date 12/05/2019 Noted Resolved Personal history of tobacco use, presenting haz* 11/09/2011 Tobacco use disorder [F17.200] 11/09/2011 More... Abnormal biliary HIDA scan [R94.8] 03/31/2012 Hyperlipemia [E78.5] 12/23/2013 More... Metabolic syndrome [E88.81] 10/12/2015 Medications Discontinued During This Encounter omeprazole (PRILOSEC) 20 mg capsule 0 02/11/2017 12/05/2019 Class: Med Update Route: ORAL Sig: Take 1 capsule by mouth daily before breakfast. 1/2 hr before meal. Patient not taking: Reported on 12/05/2019 Disc: Reason for discontinue is not on file. Cosign accepted by QIAN FREEMAN[[id number]] on 02/11/2017 11:3 6 AM naproxen (NAPROSYN) 500 mg tablet 30 t* 0 01/10/2017 0 Sig: TAKE 1 TABLET BY MOUTH TWICE DAILY NEEDED (PAIN/INFLAMMATION, TAKE WITH FOOD.) FOR UP TO 15 DAYS. Patient not taking: Reported on 12/05/2019 Disc: Reason for discontinue is not on file. Encounter Status:Closed by JOSE ANTONIO RUSSO MD on 12/05/19 office visit: new pt. visit on 2017-06-29 Documentation of Done Invalid 06-29-2017 [facility] current medications Interpretation Code 06-29-2017 Internal (procedure) Medicine (85783) Fall risk No Invalid 06-29-2017 - [facility] gton assessment Interpretation Code Internal Medicine ( 45003) Tobacco use [facility] Former Invalid 06-29-2017 - [place] smoker Interpretation Code 06-29-2017 Internal Medicine ( 99052) office visit on 02-24-07 Documentation of Done Invalid 02-24-2017 - [facility] current medications Interpretation Code 02-24-2017 [facility] Sports (procedure) Medicine and Orthopaedi cs (89103) Tobacco use [facility] Former Invalid 02-24-2017 - [facility] smoker Interpretation Code 02-24-2017 Center Sports Medicine a nd Orthopaedi cs (80704) office visit on 201 01-23-11 Protein mass conc Done 12-30-2015 - [facility] 12-30-2015 Sports Me dicine and Orthopaedi cs (37425) Tobacco smoking Former smoker 12-30-2015 - [facility] status NHIS 12-30-2015 Sports Medicine and Orthopaedi cs (84123) Vital Signs Vital Sign Description Value / Unit Date Location The following section is limited to 5 en tries per type and includes entries from the following time range: 20151120 - 20160830 9. BMI (Body Mass Index) 33.94 kg/m2 06-29-2017 - 06-29-2017 [facility] Internal Medicine (42359) BMI (Body Mass Index) 32.78 kg/m2 11-20-2015 - 11-20-2015 [facility] Sports Medicine and Ort hopaedics (97977) Body Temperature 96 [degF] 06-29-2017 - 06-29-2017 [facility] Internal Medicine (67921) BP Diastolic 84 mm[Hg] 06-29-2017 - 06-29-2017 [facility] Internal Medicine (00351) BP Systolic 130 mm[Hg] 06-29-2017 - 06-29-2017 [facility] Internal Medicine (36784) Height 165.1 cm 06-29-2017 - 06-29-2017 [facility] Internal Medicine (81332) Height 165.1 cm 11-20-2015 - 11-20-2015 [facility] Sports Medicine and Ort hopaedics (46128) Pulse (Heart Rate) 64 /min 06-29-2017 - 06-29-2017 [facility] Internal Medicine (34760) Respiratory Rate 18 /min 06-29-2017 - 06-29-2017 [facility] Internal Medicine (40067) Weight 92.53 kg 06-29-2017 - 06-29-2017 [facility] Internal Medicine (11918) Weight 89.36 kg 11-20-2015 - 11-20-2015 [facility] Sports Medicine and Ort hopaedics (88859) Procedures Procedure Name Date Provider Location Arthrocentesis aspir&/inj 02-24-2017 - Naldo marrufo Internal major jt/karly w/o us 03-02-2017 Medicine ( 05959) Drain/inject, joint/bursa 02-24-2017 - Naldo Stanley [facility] dical Center Sports 03-02-2017 Medicine and Ort hopaedics (66373) Arthrocentesis aspir&/inj 12-30-2015 - Naldo Avendano [facility] Internal major jt/bursa w/o us 01-11-2016 Medicine ( 50148) Drain/inject, joint/bursa 12-30-2015 [facility] 01-11-2016 Medicine and Ort hopaedics (04200) Plan of Treatment Plan Description Date Location Appointment Appointment 10-11-2017 - [facility] 10-11-2017 Medicine ([id number]) Appointment Appointment 08-31-2017 - Pulmonary Medici ne of 08-31-2017 [place] ([id number]) Complete portable sleep Complete portable sleep 06-29-2017 - [facility] workup (portable,CPAP workup (portable,CPAP 06-29-2017 Medi cine (83579) as indicated) & follow as indicated) & follow up up Follow Up Appt 3 months Follow Up Appt 3 months 06-29-2017 - [facility] 06-29-2017 Medicine (75921) [facility] Nutrition [facility] Nutrition 06-29-2017 - [facility], [address] 06-29-2017 Medici ne (27879) [place], [address] [place], [address] X-Ray, Knee X-Ray, Knee 02-24-2017 - [facility] 02-24-2017 Medicine (06490) Appointment Appointment 02-24-2017 [facility] 02-24-2017 Sports Medicine and Orthopaedics (44 041) X-Ray, Knee X-Ray, Knee 02-24-2017 - [facility] 02-24-2017 Sports Medicine and Orthopaedics (44 691) MRI Joint Lower MRI Joint Lower 11-20-2015 - [facility] Extremity Extremity 11-20-2015 Medicine (94048) X-Ray, Knee X-Ray, Knee 11-20-2015 - [facility] rnal 11-20-2015 Medicine (46244) MRI Joint Lower MRI Joint Lower 11-20-2015 - [facility] Extremity Extremity 11-20-2015 Sports Medicine and Orthopaedics (44 691) X-Ray, Knee X-Ray, Knee 11-20-2015 - [facility] 11-20-2015 Sports Medicine and Orthopaedics (44 691) Summary Purpose Family History No Family History Records Found Advance Directives No Advanced Directives Records Found Additional Source Comments FOR RECORDS PERTAINING TO PATIENTS WHO ARE OR HAVE BEEN ENROLLED IN A CHEMICAL DEPENDENCY/SUBSTANCE ABUSE PROGRAM, SOME INFORMATION MAY BE OMITTED. This clinical summary was aggregated from multiple sources. Caution should be exercised in using it in the provision of clinical care. This summary normalizes information from multiple sources, and as a consequence, information in this document may materially changethe coding, format and clinical context of patient data. In addition, data may be omittedin some cases. CLINICAL DECISIONS SHOULD BE BASED ON THE PRIMARY CLINICAL RECORDS. [facility] provides no warranty or guarantee of the accuracy or completeness of information in this document. UNRECOGNIZED CONTENT PROVIDED BELOW FOR UNRECOGNIZED SECTION INFORMATION SOURCE DATE CREATED AUTHOR AUTHOR'S ORGANIZATIO N 12/05/2019 [facility]
== END ==
PROVIDERS: PCP Internal Medicine; Referring Provider Internal Medicine; Visit Provider Internal Medicine
DX: R07.9 Chest pain, unspecified (principal); R94.31 Abnormal electrocardiogram [ECG] [EKG]
CPT/HCPCS: 78452; 93017; A9500; A4216

== ENCOUNTER → 2020-11-19 16:47 | Outpatient (CLI) | payer BC, SELFPAY ==
[2020-11-18 17:38] VITALS: BMI 34.1
--- NOTE | 2020-11-19 17:00 | RAD_ITS ---
STUDY: X-RAY - LEFT KNEE REASON FOR EXAM: Chronic left knee pain. TECHNIQUE: 4 view(s) of the knee. COMPARISON: Radiographs 02/24/2017. FINDINGS: Normal visualized distal femur. Normal visualized proximal tibia and fibula. Normal proximal tibiofibular articulation. There is severe joint space narrowing of the medial femorotibial compartment, increased since the prior study. Normal lateral femorotibial compartment. Normal patellofemoral articulation. The soft tissue structures are unremarkable. 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 Electronically Signed: Ming Martin MD at 8:17 EDT Tel , Service support ,
[2020-11-19 17:07] LABS: Absolute Lymphocyte Count 3.07 X10^3/uL (0.83-4.51); Absolute Neutrophil Count 3.5 X10^3/uL (2.0-7.7); Basophil# 0.06 X10^3/uL; Basophil% 0.8 % (0-1); Eosinophil# 0.12 X10^3/uL; Eosinophils% 1.5 % (0-5); Hematocrit 42.6 % (37-47); Hemoglobin 13.6 g/dL (12.0-15.0); Lymphocyte # 3.07 X10^3/ul (4.0); Lymphocyte % 39.1 % (19-41); Mean Corp Hgb Conc 31.9 g/dL (32-36); Mean Corpuscular Hgb 29.4 pg (27.0-32.0); Mean Corpuscular Volume 92.2 fL (81-99); Mean Platelet Vol. 10.5 fl (6.2-12.0); Monocyte# 1.07 X10^3/uL; Monocyte% 13.6 % (0-10); NRBC Flagged by Analyzer 0 % (0-5); Neutrophil % 44.6 % (47-70); Platelet Count 299 K/mm3 (150-450); RBC Distribution Width CV 13.2 % (11.6-14.6); RBC Distribution Width SD 44.4 fl (35.1-43.9); Red Blood Count 4.62 M/mm3 (4.2-5.4); White Blood Count 7.9 K/mm3 (4.4-11.0)
[2020-11-19 17:23] LABS: Hemoglobin A1c 6.2 % (3.8-5.6)
[2020-11-19 18:07] LABS: ALB/GLOB Ratio 0.9 RATIO (0.9-2.4); AST(SGOT) 20 U/L (15-37); Alanine Aminotransfer ALT/SGPT 52 U/L (13-56); Albumin, Serum 3.5 g/dL (3.2-5.0); Alkaline Phosphatase 96 U/L (45-117); Anion Gap 3 (5-15); BUN 19 mg/dL (7-18); BUN/Creat Ratio 19.9 RATIO (10-20); Calcium,Total 8.9 mg/dL (8.5-10.1); Chloride 106 mmol/L (98-107); Cholesterol 192 mg/dL (200); Creatinine, Serum 0.96 mg/dL (0.55-1.02); EST Glomerular Filtration Rate 65 mL/min (>60); Est Glom Filt Rate - Afr Amer 79 mL/min (>60); Globulin 3.9 g/dL (2.2-4.2); Glucose 133 mg/dL (74-106); High Density Lipoprotein 44 mg/dL; Protein, Total 7.4 g/dL (6.4-8.2); Sodium Level 138 mmol/L (136-145); Triglycerides 223 mg/dL; Very Low Density Lipoprotein 45 mg/dL (5-40)
== END ==
PROVIDERS: PCP Internal Medicine; Referring Provider Internal Medicine; Visit Provider Internal Medicine
DX: M25.562 Pain in left knee (principal); E11.9 Type 2 diabetes mellitus without complications
CPT/HCPCS: 36415; 73564; 80053; 80061; 83036; 85025

== ENCOUNTER → 2021-04-09 16:40 | Outpatient (CLI) | payer BC, SELFPAY ==
[2021-02-24 17:10] VITALS: BMI 34.1
--- NOTE | 2021-04-08 15:50 | BI_ITS ---
MAMMOGRAPHY - BILATERAL SCREENING REASON FOR EXAM: Female, 50 years old. Routine annual screening examination. PERTINENT HISTORY: Non-contributory. TECHNIQUE: Digital bilateral breast susannah (3D mammographic acquisition) in the CC and MLO projections. 2-D mediolateral oblique (MLO) and craniocaudad (CC) views of both breasts were obtained. CAD: Full Field Digital Mammography with Computer Added Detection was performed. COMPARISON: Comparison is made with prior study dated 11/14/2019 and 08/13/2018. FINDINGS: Breast Composition: There are scattered areas of fibroglandular density. There are no dominant masses or suspicious calcifications. Stable benign appearing bilateral axillary lymph nodes. No other significant abnormalities are identified. There has been no significant change since the prior study. BI/SCRN MAMM (CAD)W/SUSANNAH BILAT IMPRESSION: Stable bilateral screening mammogram. Yearly follow-up mammogram recommended. (A) ASSESSMENT CATEGORY: BIRADS Category 2: Benign. A letter regarding these results will be sent to the patient by the facility within 30 days. Approximately 10% of breast cancers are not detected by mammography. A normal mammogram should not delay biopsy of a clinically suspicious abnormality. [id number] Electronically Signed: Phu Suarez MD at 8:27 EDT , Service support ,
== END ==
PROVIDERS: PCP Internal Medicine; Referring Provider Obstetrics & Gynecology; Visit Provider Obstetrics & Gynecology
DX: Z12.31 Encounter for screening mammogram for malignant neoplasm of breast (principal)
CPT/HCPCS: 77063; 77067

== ENCOUNTER → 2021-05-19 14:32 | Outpatient (CLI) | payer BC, SELFPAY ==
--- NOTE | 2021-05-19 14:34 | VDLE_ITS ---
Reason For Study: Pain RIGHT LEFT CFV is compressible, spontaneous, phasic, GSV is normal. competent and demonstrates normal CFV is compressible, spontaneous, phasic, augmentation. competent, and demonstrates normal Procedure augmentation. This is a venous duplex using B-mode, color FV is compressible, spontaneous, phasic, flow and spectral Doppler. competent and demonstrates normal Exam performed in department. augmentation. A preliminary report was called and/or faxed POP V is compressible, spontaneous, phasic, to Krista. competent and demonstrates normal augmentation. T/P Trunk is compressible. PTV is compressible. LT PerV is compressible. Nonvascularized structure noted in the popliteal fossa measurig 2.90 x 5.01 x 4.81 cm. VL/Venous Duplex US, Unilateral Interpretation Summary There is no evidence of left lower extremity deep vein thrombosis. Left great s aphenous vein appears patent and compressible segmentally. Non-vascular complex solid cystic left pop liteal space structure measuring 2.9 x 5.01 x 4.81 cm. Possible Sprague's cyst with hemorrhage . Clinical correlation however would be appropriate as this is not definite. Normal flow patterns right common femoral vein Ordering Physician: Oli Velasco Referring Physician: Oli Velasco Performed By: Stefani Verdin RVT
== END ==
PROVIDERS: PCP Internal Medicine; Referring Provider Internal Medicine; Visit Provider Internal Medicine
DX: M79.605 Pain in left leg (principal); M79.89 Other specified soft tissue disorders
CPT/HCPCS: 93971

== ENCOUNTER 2021-11-12 08:07 | Outpatient (CLI) | payer BC, SELFPAY ==
[2021-11-12 09:09] LABS: Absolute Lymphocyte Count 2.35 X10^3/uL (0.83-4.51); Absolute Neutrophil Count 2.4 X10^3/uL (2.0-7.7); Basophil# 0.04 X10^3/uL; Basophil% 0.7 % (0-1); Eosinophil# 0.08 X10^3/uL; Eosinophils% 1.4 % (0-5); Hematocrit 46.5 % (37-47); Hemoglobin 15.1 g/dL (12.0-15.0); Lymphocyte # 2.35 X10^3/ul (0.83-4.51); Lymphocyte % 41.2 % (19-41); Mean Corp Hgb Conc 32.5 g/dL (32-36); Mean Corpuscular Volume 89.3 fL (81-99); Mean Platelet Vol. 10.4 fl (6.2-12.0); Monocyte# 0.81 X10^3/uL; Monocyte% 14.2 % (0-10); NRBC Flagged by Analyzer 0 % (0-5); Neutrophil % 42.1 % (47-70); Platelet Count 362 K/mm3 (150-450); RBC Distribution Width CV 13.1 % (11.6-14.6); RBC Distribution Width SD 42.8 fl (35.1-43.9); Red Blood Count 5.21 M/mm3 (4.2-5.4); White Blood Count 5.7 K/mm3 (4.4-11.0)
[2021-11-12 09:30] LABS: ALB/GLOB Ratio 1.1 RATIO (0.9-2.4); AST(SGOT) 18 U/L (15-37); Alanine Aminotransfer ALT/SGPT 44 U/L (13-56); Alkaline Phosphatase 101 U/L (45-117); Anion Gap 5 (5-15); BUN 19 mg/dL (7-18); BUN/Creat Ratio 19.9 RATIO (10-20); Calcium,Total 9.5 mg/dL (8.5-10.1); Chloride 106 mmol/L (98-107); Cholesterol 212 mg/dL (200); Creatinine, Serum 0.95 mg/dL (0.55-1.02); EST Glomerular Filtration Rate 65 mL/min (>60); Est Glom Filt Rate - Afr Amer 79 mL/min (>60); Globulin 3.6 g/dL (2.2-4.2); Glucose 114 mg/dL (74-106); High Density Lipoprotein 44 mg/dL; Protein, Total 7.6 g/dL (6.4-8.2); Sodium Level 139 mmol/L (136-145); Triglycerides 172 mg/dL; Very Low Density Lipoprotein 34 mg/dL (5-40)
== END 2021-11-12 23:59 | disposition home or self-care (01) ==
LOC: BIMLAB 08:08
PROVIDERS: PCP Internal Medicine; Referring Provider Internal Medicine; Visit Provider Internal Medicine
DX: I10 Essential (primary) hypertension (principal); E11.69 Type 2 diabetes mellitus with other specified complication
CPT/HCPCS: 36415; 80053; 80061; 85025

== ENCOUNTER → 2022-02-24 | Outpatient (CLI) | payer BC, SELFPAY ==
[2022-03-03 17:24] LABS: HPV Reflexed? NOT INDICATED
== END | disposition home or self-care (01) ==
LOC: LABSPEC 13:23
PROVIDERS: PCP Internal Medicine; Visit Provider Obstetrics & Gynecology
DX: Z12.4 Encounter for screening for malignant neoplasm of cervix (principal)
CPT/HCPCS: 88175; G0145

== ENCOUNTER → 2022-08-04 | Outpatient (CLI) | payer BC, SELFPAY ==
--- NOTE | 2022-08-04 16:48 | BI_ITS ---
MAMMOGRAPHY - BILATERAL SCREENING REASON FOR EXAM: Female, 52 years old. Routine annual screening examination. PERTINENT HISTORY: Non-contributory. TECHNIQUE: Digital bilateral breast susannah (3D mammographic acquisition) in the CC and MLO projections. 2-D mediolateral oblique (MLO) and craniocaudad (CC) views of both breasts were obtained. CAD: Full Field Digital Mammography with Computer Added Detection was performed. COMPARISON: Comparison is made with prior study dated 04/08/2021 and 11/14/2019. FINDINGS: Breast Composition: The breasts are almost entirely fatty. There are no dominant masses or suspicious calcifications. Stable benign-appearing bilateral axillary No other significant abnormalities are identified. There has been no significant change since the prior study. BI/SCRN MAMM (CAD)W/SUSANNAH BILAT IMPRESSION: Stable bilateral screening mammogram. Yearly follow-up mammogram recommended. (A) ASSESSMENT CATEGORY: BIRADS Category 2: Benign. A letter regarding these results will be sent to the patient by the facility within 30 days. Approximately 10% of breast cancers are not detected by mammography. A normal mammogram should not delay biopsy of a clinically suspicious abnormality. [id number] Electronically Signed: Phu Suarez MD at 13:55 EST ,
== END | disposition home or self-care (01) ==
PROVIDERS: PCP Internal Medicine; Visit Provider Physician Assistant
DX: Z12.31 Encounter for screening mammogram for malignant neoplasm of breast (principal)
CPT/HCPCS: 77063; 77067

== ENCOUNTER → 2023-04-21 | Outpatient (CLI) | payer BC, SELFPAY ==
[2023-04-21 15:05] LABS: Absolute Lymphocyte Count 2.69 X10^3/uL (0.83-4.51); Absolute Neutrophil Count 2.8 X10^3/uL (2.0-7.7); Basophil# 0.04 X10^3/uL; Basophil% 0.6 % (0-1); Eosinophils% 1.6 % (0-5); Hematocrit 45.1 % (37-47); Hemoglobin 14.7 g/dL (12.0-15.0); Lymphocyte # 2.69 X10^3/ul (0.83-4.51); Lymphocyte % 42.2 % (19-41); Mean Corp Hgb Conc 32.6 g/dL (32-36); Mean Corpuscular Hgb 29.3 pg (27.0-32.0); Mean Platelet Vol. 10.9 fl (6.2-12.0); Monocyte# 0.78 X10^3/uL; Monocyte% 12.2 % (0-10); NRBC Flagged by Analyzer 0 % (0-5); Neutrophil # 2.75 X10^3/uL (2.7-7.7); Neutrophil % 43.1 % (47-70); Platelet Count 328 K/mm3 (150-450); RBC Distribution Width CV 13.1 % (11.6-14.6); RBC Distribution Width SD 42.8 fl (35.1-43.9); Red Blood Count 5.01 M/mm3 (4.2-5.4); White Blood Count 6.4 K/mm3 (4.4-11.0)
[2023-04-21 15:21] LABS: ALB/GLOB Ratio 1.1 RATIO (0.9-2.4); AST(SGOT) 20 U/L (15-37); Alanine Aminotransfer ALT/SGPT 40 U/L (13-56); Alkaline Phosphatase 105 U/L (45-117); Anion Gap 8 (5-15); BUN 19 mg/dL (7-18); BUN/Creat Ratio 23.7 RATIO (10-20); Calcium,Total 9.3 mg/dL (8.5-10.1); Chloride 109 mmol/L (98-107); Cholesterol 221 mg/dL (200); EST Glomerular Filtration Rate 79 mL/min (>60); Est Glom Filt Rate - Afr Amer 96 mL/min (>60); Globulin 3.5 g/dL (2.2-4.2); Glucose 99 mg/dL (74-106); High Density Lipoprotein 50 mg/dL; Protein, Total 7.5 g/dL (6.4-8.2); Sodium Level 141 mmol/L (136-145); Triglycerides 237 mg/dL; Very Low Density Lipoprotein 47 mg/dL (5-40)
[2023-04-21 15:56] LABS: Microalbumin,Random Urine < 5.0 mg/L (NO RANGE EST.)
== END | disposition home or self-care (01) ==
LOC: BIMLAB 11:55
PROVIDERS: PCP Internal Medicine; Referring Provider Internal Medicine; Visit Provider Internal Medicine
DX: E11.9 Type 2 diabetes mellitus without complications (principal)
CPT/HCPCS: 36415; 80053; 80061; 82043; 82570; 85025

== ENCOUNTER → 2023-08-07 | Outpatient (CLI) | payer BC, SELFPAY ==
--- NOTE | 2023-08-07 15:58 | BI_ITS ---
MAMMOGRAPHY - BILATERAL SCREENING REASON FOR EXAM: Female, 53 years old. Routine annual screening examination. PERTINENT HISTORY: Non-contributory. TECHNIQUE: Digital bilateral breast susannah (3D mammographic acquisition) in the CC and MLO projections. 2-D mediolateral oblique (MLO) and craniocaudad (CC) views of both breasts were obtained. CAD: Full Field Digital Mammography with Computer Added Detection was performed. COMPARISON: Comparison is made with prior study dated May 05, 2022 and April 08, 2021. FINDINGS: Breast Composition: The breasts are almost entirely fatty. There are no dominant masses or suspicious calcifications. Stable small benign-appearing bilateral axillary lymph nodes. No other significant abnormalities are identified. There has been no significant change since the prior study. BI/SCRN MAMM (CAD)W/SUSANNAH BILAT IMPRESSION: Stable bilateral screening mammogram. Yearly follow-up mammogram recommended. (A) ASSESSMENT CATEGORY: BIRADS Category 2: Benign. A letter regarding these results will be sent to the patient by the facility within 30 days. Approximately 10% of breast cancers are not detected by mammography. A normal mammogram should not delay biopsy of a clinically suspicious abnormality. [id number] Electronically Signed: Phu Suarez MD at 9:51 EST ,
== END | disposition home or self-care (01) ==
LOC: OPBI 15:57
PROVIDERS: PCP Internal Medicine; Referring Provider Nurse Practitioner Family; Visit Provider Nurse Practitioner Family
DX: Z12.31 Encounter for screening mammogram for malignant neoplasm of breast (principal)
CPT/HCPCS: 77063; 77067

== ENCOUNTER → 2024-08-13 | Outpatient (CLI) | payer BC, SELFPAY ==
--- NOTE | 2024-08-13 11:58 | BI_ITS ---
MAMMOGRAPHY - BILATERAL SCREENING 3-D TOMOSYNTHESIS REASON FOR EXAM: Female, 54 years old. Breast cancer screening PERTINENT HISTORY: No significant family history. TECHNIQUE: 2-D mammograms and 3-D Tomosynthesis of the breast (s) were performed. CAD was performed. COMPARISON: 08/07/2023 FINDINGS: The breast composition is composed of scattered fibroglandular density. Scattered benign calcifications are seen. No dense spiculated masses or suspicious microcalcifications are identified. No architectural distortion is identified. There is no skin thickening or retraction. There has been no significant change since the prior study. BI/SCRN MAMM (CAD)W/SUSANNAH BILAT IMPRESSION: No mammographic signs of malignancy. Routine yearly mammograms recommended. ASSESSMENT CATEGORY: BIRADS Category 1: Negative. A letter regarding these results will be sent to the patient by the facility within 30 days. FOLLOW UP RECOMMENDATION: Yearly follow up mammogram recommended. (A) Approximately 10% of breast cancers are not detected by mammography. A normal mammogram should not delay biopsy of a clinically suspicious abnormality. Electronically Signed: Shaun Seals MD at 15:48 EST ,
== END | disposition home or self-care (01) ==
LOC: OPBI 11:58
PROVIDERS: PCP Internal Medicine; Referring Provider Internal Medicine; Visit Provider Internal Medicine
DX: Z12.31 Encounter for screening mammogram for malignant neoplasm of breast (principal)
CPT/HCPCS: 77063; 77067

== ENCOUNTER → 2024-10-28 | Outpatient (CLI) | payer BC, SELFPAY ==
[2024-10-28 16:04] LABS: Absolute Lymphocyte Count 3.45 X10^3/uL (0.83-4.51); Absolute Neutrophil Count 3.4 X10^3/uL (2.0-7.7); Basophil# 0.04 X10^3/uL; Basophil% 0.5 % (0-1); Eosinophil# 0.18 X10^3/uL; Eosinophils% 2.3 % (0-5); Hematocrit 43.7 % (37-47); Hemoglobin 14.4 g/dL (12.0-15.0); Lymphocyte # 3.45 X10^3/ul (0.83-4.51); Lymphocyte % 43.6 % (19-41); Mean Corpuscular Hgb 29.3 pg (27.0-32.0); Mean Corpuscular Volume 88.8 fL (81-99); Mean Platelet Vol. 10.4 fl (6.2-12.0); Monocyte# 0.87 X10^3/uL; NRBC Flagged by Analyzer 0 % (0-5); Neutrophil # 3.35 X10^3/uL (2.7-7.7); Neutrophil % 42.3 % (47-70); Platelet Count 305 K/mm3 (150-450); RBC Distribution Width CV 13.2 % (11.6-14.6); RBC Distribution Width SD 43.4 fl (35.1-43.9); Red Blood Count 4.92 M/mm3 (4.2-5.4); White Blood Count 7.9 K/mm3 (4.4-11.0)
[2024-10-28 19:55] LABS: Cholesterol 229 mg/dL (<=200); High Density Lipoprotein 50 mg/dL; Low Density Lipoprotein Calc. 143 mg/dL; Triglycerides 179 mg/dL; Very Low Density Lipoprotein 36 mg/dL (5-40); cholesterol:hdl ratio screen 4.59
[2024-10-28 20:09] LABS: ALB/GLOB Ratio 1.5 RATIO (0.9-2.4); AST(SGOT) 22 U/L (<=31); Alanine Aminotransfer ALT/SGPT 28 U/L (<=34); Albumin, Serum 4.5 g/dL (3.5-5.0); Alkaline Phosphatase 92 U/L (35-104); Anion Gap 13 (5-15); BUN 16 mg/dL (4-19); Calcium,Total 9.9 mg/dL (7.6-11.0); Carbon Dioxide 24.1 mmol/L (21.0-32.0); Chloride 102 mmol/L (98-108); Creatinine, Serum 0.81 mg/dL (0.70-1.20); EST Glomerular Filtration Rate 85 (>60); Glucose 95 mg/dL (70-99); Potassium 4.5 mmol/L (3.3-5.1); Protein, Total 7.5 g/dL (5.9-8.4); Sodium Level 139 mmol/L (133-145); Total Bilirubin 0.28 mg/dL (0.00-1.30)
[2024-10-28 20:14] LABS: BUN/Creat Ratio 19.3 RATIO (10-20)
== END | disposition home or self-care (01) ==
LOC: BIMLAB 13:48
PROVIDERS: PCP Internal Medicine; Referring Provider Internal Medicine; Visit Provider Internal Medicine
DX: E11.69 Type 2 diabetes mellitus with other specified complication (principal); E78.5 Hyperlipidemia, unspecified
CPT/HCPCS: 36415; 80053; 80061; 85025